=== PATIENT | female | born 1990 ===

== ENCOUNTER 2017-12-03 08:18 | Outpatient (CLI) | payer MEDICAID, SELFPAY ==
[2017-12-03 09:19] LABS: Abs Immature Grans 0.03 k/cumm (0.0-0.09); Absolute Basophil Count 0.03 k/cumm (0.0-0.2); Absolute Lymphocyte Count 3.23 k/cumm (1.2-3.4); Absolute Monocyte Count 0.71 k/cumm (0.11-0.7); Absolute Neutrophil Count 5.23 k/cumm (1.2-6.7); Basophils % 0.3; Eosinophils % 1.1; HCT 39.7 % (36.0-46.0); HGB 13.2 g/dL (12.0-15.5); Immature Grans % 0.3; Lymphocytes % 34.6; Mean Corp. HGB Concentration 33.2 g/dL (32.0-36.0); Mean Corpuscular Volume 96.4 fL (80-95); Mean Platelet Volume 10.2 fL (8.0-11.0); Monocytes % 7.6; Neutrophils % 56.1; Platelet Count 301 x1000/uL (130-400); RBC 4.12 m/cumm (4.00-5.20); White Blood Cell Count 9.33 k/cumm (4.4-10.8)
[2017-12-03 09:53] LABS: Anion Gap 12.3 mmol/L (3-11); BUN 8 mg/dL (7-18); CO2 24.7 mmol/L (21.0-32.0); CREATININE 0.62 mg/dL (0.55-1.02); Calcium 8.9 mg/dL (8.5-10.1); Chloride 103 mmol/L (98-107); Glucose 81 mg/dL (70-100); Magnesium 1.7 mg/dL (1.8-2.4); Potassium 3.9 mmol/L (3.5-5.1); Sodium 140 mmol/L (136-145); TSH (W/Ref FT4) 2.51 uIU/mL (0.358-3.74)
[2017-12-06 05:05] LABS: Vitamin D 25 Total 17.7 ng/ml (30-100)
== END 2017-12-03 08:19 ==
PROVIDERS: PCP Student in an Organized Health Care Education/Training Program; Visit Provider Student in an Organized Health Care Education/Training Program
DX: E46 Unspecified protein-calorie malnutrition (principal); R53.83 Other fatigue
CPT/HCPCS: 36415; 80048; 82306; 83735; 84443; 85025

== ENCOUNTER 2018-08-30 13:40 | Emergency (ER) | payer MEDICAID, SELFPAY ==
[2018-08-30 13:43] VITALS: BP 90/53; PULSE 70; RESP 16; TEMP 36.9; O2SAT 98
--- NOTE | 2018-08-30 16:20 | W.ED.GENAD ---
Discharge Plan Disposition Patient Disposition: HOME Discharge Details Chief Complaint: Orthopedic Primary Care Provider: Mirta Padilla ED Provider: Ronna Carson Home Meds and New Rx's Prescriptions: New cephalexin [Keflex] 500 mg capsule 500 mg PO QID Qty: 20 RF: 0 Continued sumatriptan succinate 50 mg tablet 50 mg PO ONCE Qty: 30 RF: 1 bupropion HCl [Wellbutrin XL] 300 mg tablet extended release 24 hr 300 mg PO QAM Qty: 90 RF: 3 multivitamin [Daily Multi-Vitamin] 1 EACH tablet 1 ea PO DAILY RF: 0 FE 1.5 (28) 1 EACH tablet 1 tab-cap PO DAILY 28 Days RF: 0 ibuprofen 200 MG capsule 200 mg PO PRN RF: 0 Discharge Data Discharge Date/Time-TO BE ENTERED AT DEPARTURE: 08/30/18 19:04 Medical Decision Making <Franky Jama NP - Last Filed: 09/06/18 08:07> Left hand fingernail avulsion and abrasions to the third fourth and fifth digits with complete nail loss to third digit and partial nail avulsion to fourth digit. Patient has sensation movement and cap refill all intact. Patient also does have a 5 mm laceration in between the DIP and PIP. Verbal consent was obtained for wound repair 6-0 Prolene 2 sutures were used to close laceration. Digital block technique with 3 mL's instilled to base of each finger. No matrix laceration was noted. ring finger nail was replaced and 2 sutures along with Dermabond was used to hold the nail in to the nailbed. Due to complete loss of the middle finger nail metallic suture packing was utilized to construct the nail and placed into the nailbed being held into place by Dermabond. Patient tolerated procedure well with no complication. imaging was ordered to rule out fracture. <ALYSIA Cervantes - Last Filed: 08/30/18 20:20> Care was transitioned to myself from Franky Jama NP with imaging pending of the patient's fourth digit left hand. Images are reviewed by radiology: FINDINGS: Bones/joints: There is a small bony density on the lateral adjacent to the distal tuft dorsally that may represent a tiny chip fracture. Soft tissues: There is soft tissue laceration with soft tissue swelling present about the distal finger. IMPRESSION: 1. Possible tiny chip fracture of the distal tuft. 2. Soft tissue laceration. Discussed these findings with the patient. She will prophylactically be placed on Keflex. I did advise follow-up with orthopedic follow-up for reevaluation, she will call them tomorrow to schedule follow-up appointment. Encourage rest, ice, elevation. Tylenol and ibuprofen as needed for discomfort. Foam and metal splint has been applied by nursing staff which she will keep on until evaluated by orthopedics. She was given strict return precautions, in particular signs of infection. Discussed wound care in depth. Advised to return in 12 to 14 days for suture removal. All of her questions and concerns were addressed and she is in agreement this plan. HPI <Franky Jama NP - Last Filed: 09/06/18 08:07> General Mode of arrival: ambulatory. Date/Time Provider Initiated Documentation: 08/30/18 14:24. Limitations to Documentation: no limitations. Information obtained by: patient and RN notes reviewed. History of Present Illness 28 year old F presents to the emergency department with the chief complaint of left hand injury, described as moderate, with intensity rated at 7. Quality is described as sharp, and is localized to the left and upper extremity. Patient started experiencing this hour(s) (1) and it has been constant. Patient notes no other symptoms.. Patient did receive the following treatments prior to arrival, none Related Data Home Medications Medication Instructions Recorded Confirmed (28) 1 tab-cap PO DAILY 28 Days tab-cap 11/24/17 08/30/18 ibuprofen 200 mg PO PRN 11/24/17 08/30/18 multivitamin [Daily Multi-Vitamin] 1 ea PO DAILY 11/24/17 08/30/18 bupropion HCl XL 300 mg 24 hr 300 mg PO QAM #90 tab 02/23/18 08/30/18 tablet, extended release sumatriptan 50 mg tablet 50 mg PO ONCE #30 tab 08/17/18 08/30/18 cephalexin [Keflex] 500 mg PO QID #20 cap 08/30/18 Previous Rx's Medication Instructions Recorded bupropion HCl XL 300 mg 24 hr 300 mg PO QAM #90 tab 02/23/18 tablet, extended release sumatriptan 50 mg tablet 50 mg PO ONCE #30 tab 08/17/18 cephalexin [Keflex] 500 mg PO QID #20 cap 08/30/18 Allergies Allergy/AdvReac Type Severity Reaction Status Date / Time adhesive Allergy Intermediate Rash Verified 08/30/18 13:46 General Stated Complaint: Orthopedic BEA: 4 Review of Systems <Franky Jama NP - Last Filed: 09/06/18 08:07> Cardiovascular Denies syncope and Denies lightheadedness Musculoskeletal Denies deformity, Denies limited range of motion and Denies numbness Integumentary/Breasts Reports as per HPI Neurologic Denies syncope, Denies numbness and Denies paresthesias PFSH <Franky Jama NP - Last Filed: 09/06/18 08:07> Surgical History No history of previous surgery (Acute) Family History Mother Alcohol abuse Depression Mental disorder Father Alcohol abuse Maternal Grandfather CAD (coronary artery disease) Maternal Grandmother CAD (coronary artery disease) Other Autism Social History Smoking/Tobacco Use Status: Never Alcohol Intake: never Drug use: Never Substance use type: does not use Adopted: No Caregiver/Support person: No Foster care: No Housing: apartment current occupation: student What type of physical activity do you participate in: none Seatbelt use: always Drive 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 Working smoke detector in home: Yes Fire extinguisher in home: No Carbon monox detector in home: Yes Firearms in home: No Do you feel safe at home: Yes Do you feel safe in your relationship?: Yes Exam <Franky Jama NP - Last Filed: 09/06/18 08:07> Const General: cooperative and no acute distress Orientation: alert, awake and oriented x3 Limitations: mental status not altered Resp Effort & Inspection: normal respiratory effort and able to speak in complete sentences Cardio Rate: regular rate Rhythm: regular rhythm Neuro General: alert, awake, oriented x3, gait normal, tone normal, moves all extremities, normal light touch, pain and propioception and no focal motor deficits Motor: no movement abnormalities noted Sensory Exam: no sensory deficits noted Extrem Left upper extremity: hand Details: normal capillary refill, neuromotor exam normal, neurosensory exam normal, tendon exam normal, abrasion Location: of the 3rd digit and of the 4th digit and laceration (nail avulsion of 3rd and 4th digit ) Course <Franky Jama NP - Last Filed: 09/06/18 08:07> Vital Signs Temperature 36.9 C 08/30/18 13:43 Pulse 70 08/30/18 13:43 Respiratory Rate 16 08/30/18 13:43 Blood Pressure 90/53 L 08/30/18 13:43 Pulse Oximetry 98 08/30/18 13:43 Temperature 36.9 C 08/30/18 13:43 Temperature Source Temporal Artery Scan 08/30/18 13:43 Pulse 70 08/30/18 13:43 Respiratory Rate 16 08/30/18 13:43 Respiratory Effort Non-Labored 08/30/18 13:45 Blood Pressure 90/53 L 08/30/18 13:43 Blood Pressure Position Sitting 08/30/18 13:43 Pulse Oximetry 98 08/30/18 13:43 Oxygen Delivery Method Room Air 08/30/18 13:43 Oxygen Flow Rate 0 08/30/18 13:43 Pain Level 7 08/30/18 13:43 Sign Out <Franky Jama NP - Last Filed: 09/06/18 08:07> Sign Out Data: Sign Out Comment: Pending radiological imaging of the left ring finger patient signed out to ALYSIA Shankar for review of images and discharge. Last updated by Franky Jama NP at 08/30/18 16:40
[2018-08-30] MEDS: Lidocaine 2% Multi-Dose 20 ML VIAL IJ (16:40)
--- NOTE | 2018-08-30 16:41 | DI.RAD_ITS ---
SYMPTOM/DIAGNOSIS: FELL, INJURY, PAIN, ? FX LEFT RING FINGER: Three views. On the lateral view, there is a tiny density seen at the dorsal aspect of the terminal tuft of the left ring finger which may represent a small acute chip fracture.
--- NOTE | 2018-08-30 17:20 | DI.VRAD_ITS ---
EXAM: XR Left Finger(s), 2 or More Views EXAM DATE/TIME: 08/30/2018 4:42 PM CLINICAL HISTORY: 28 years old, female; Injury or trauma; Injury history: Cart fell onto hand, missing fingernail; Initial encounter; Crushing; Left; Injury details: Injury to distal ring finger TECHNIQUE: Imaging protocol: XR Left fingers. Views: Minimum 2 views. COMPARISON: No relevant prior studies available. FINDINGS: Bones/joints: There is a small bony density on the lateral adjacent to the distal tuft dorsally that may represent a tiny chip fracture. Soft tissues: There is soft tissue laceration with soft tissue swelling present about the distal finger. IMPRESSION: 1. Possible tiny chip fracture of the distal tuft. 2. Soft tissue laceration. Dictated and Authenticated by: Andrea Montes MD. Ordering:BRAD Wilkins MD
[2018-08-30] MEDS: Acetaminophen 500 MG TAB 1000 MG PO (18:30)
[2018-08-30] MEDS: Ibuprofen 600 MG TAB PO (18:30)
== END 2018-08-30 19:04 | disposition home or self-care (01) ==
PROVIDERS: Emergency Provider Physician Assistant; PCP Student in an Organized Health Care Education/Training Program
DX: S62.635A Displaced fracture of distal phalanx of left ring finger, initial encounter for closed fracture (principal); S61.315A Laceration without foreign body of left ring finger with damage to nail, initial encounter; S61.313A Laceration without foreign body of left middle finger with damage to nail, initial encounter; S60.417A Abrasion of left little finger, initial encounter; W01.0XXA Fall on same level from slipping, tripping and stumbling without subsequent striking against object, initial encounter
CPT/HCPCS: 12001; 26750; 90471; 73140; J3490

== ENCOUNTER 2018-09-12 19:48 | Emergency (ER) | payer MEDICAID, SELFPAY ==
[2018-09-12 20:17] VITALS: BP 131/87; PULSE 101; RESP 18; TEMP 36.7; O2SAT 100
--- NOTE | 2018-09-12 21:15 | W.ED.GENAD ---
Discharge Plan Disposition Patient Disposition: HOME Discharge Details Chief Complaint: SutureRem Clinical Impression: Encounter for removal of sutures Primary Care Provider: Mirta Padilla ED Provider: Carmine Bains Home Meds and New Rx's Prescriptions: Continued sumatriptan succinate 50 mg tablet 50 mg PO ONCE Qty: 30 RF: 1 bupropion HCl [Wellbutrin XL] 300 mg tablet extended release 24 hr 300 mg PO QAM Qty: 90 RF: 3 multivitamin [Daily Multi-Vitamin] 1 EACH tablet 1 ea PO DAILY RF: 0 (28) 1 EACH tablet 1 tab-cap PO DAILY 28 Days RF: 0 ibuprofen 200 MG capsule 200 mg PO PRN RF: 0 Discharge Instructions Additional Instructions: Please follow-up with your primary care physician. Please follow-up with a hand specialist or return to the emergency department in 4-5 days for splint removal if metallic splint does not begin to grow out with nail growth. Return to the ER immediately for any worsening or new concerning symptoms per Referrals: Mirta Padilla DO [Primary Care Provider] - Medical Decision Making 28yo f here for suture removal left 4th digit. Left 4th digit #5 sutures removed without complication. Advised return or follow-up with hand specialist as needed if splint does not grow out in 5 days. HPI General Mode of arrival: ambulatory. Date/Time Provider Initiated Documentation: 09/12/18 20:32. Limitations to Documentation: no limitations. Information obtained by: patient. HPI Narrative: 28-year-old female 13 days after being seen for crush injury to her distal left third and fourth digits with nailbed injury requiring suture and splinting. Patient is followed up with orthopedics and splint was removed. She was advised to return to the ED for suture removal. Patient notes wound seem to be healing well with no signs of infection. Related Data Home Medications Medication Instructions Recorded Confirmed (28) 1 tab-cap PO DAILY 28 Days tab-cap 11/24/17 09/12/18 ibuprofen 200 mg PO PRN 11/24/17 09/12/18 multivitamin [Daily Multi-Vitamin] 1 ea PO DAILY 11/24/17 09/12/18 bupropion HCl XL 300 mg 24 hr 300 mg PO QAM #90 tab 02/23/18 09/12/18 tablet, extended release sumatriptan 50 mg tablet 50 mg PO ONCE #30 tab 08/17/18 09/12/18 Previous Rx's Medication Instructions Recorded bupropion HCl XL 300 mg 24 hr 300 mg PO QAM #90 tab 02/23/18 tablet, extended release sumatriptan 50 mg tablet 50 mg PO ONCE #30 tab 08/17/18 Allergies Allergy/AdvReac Type Severity Reaction Status Date / Time adhesive Allergy Intermediate Rash Verified 09/12/18 20:20 General Stated Complaint: SutureRem BEA: 5 Review of Systems Integumentary/Breasts Reports as per HPI [facility] Surgical History No history of previous surgery (Acute) Family History Mother Alcohol abuse Depression Mental disorder Father Alcohol abuse Maternal Grandfather CAD (coronary artery disease) Maternal Grandmother CAD (coronary artery disease) Other Autism Social History Smoking/Tobacco Use Status: Never Alcohol Intake: never Drug use: Never Substance use type: does not use Adopted: No Caregiver/Support person: No Foster care: No Housing: apartment current occupation: student What type of physical activity do you participate in: none Seatbelt use: always Drive intox or ride w/intox 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 Working smoke detector in home: Yes Fire extinguisher in home: No Carbon monox detector in home: Yes Firearms in home: No Do you feel safe at home: Yes Do you feel safe in your relationship?: Yes Exam Skin General skin exam: no erythema Wounds: wounds noted (left 4th digit with 5 intact sutures and no signs of infection) Nails: other (left 3rd digit with metal nail bed splint intact) Course Vital Signs Temperature 36.7 C 09/12/18 20:17 Pulse 101 H 09/12/18 20:17 Respiratory Rate 18 09/12/18 20:17 Blood Pressure 131/87 09/12/18 20:17 Pulse Oximetry 100 09/12/18 20:17 Temperature 36.7 C 09/12/18 20:17 Temperature Source Skin 09/12/18 20:17 Pulse 101 H 09/12/18 20:17 Respiratory Rate 18 09/12/18 20:17 Blood Pressure 131/87 09/12/18 20:17 Blood Pressure Position Sitting 09/12/18 20:17 Pulse Oximetry 100 09/12/18 20:17 Oxygen Delivery Method Room Air 09/12/18 20:17 Oxygen Flow Rate 0 09/12/18 20:17
--- NOTE | 2018-09-12 21:18 | ED.GENADUL_ITS ---
Discharge Plan Disposition Patient Disposition: HOME Discharge Details Chief Complaint: SutureRem Clinical Impression: Encounter for removal of sutures Primary Care Provider: Mirta Padilla ED Provider: Carmine Bains Home Meds and New Rx's Prescriptions: Continued sumatriptan succinate 50 mg tablet 50 mg PO ONCE Qty: 30 RF: 1 bupropion HCl [Wellbutrin XL] 300 mg tablet extended release 24 hr 300 mg PO QAM Qty: 90 RF: 3 multivitamin [Daily Multi-Vitamin] 1 EACH tablet 1 ea PO DAILY RF: 0 (28) 1 EACH tablet 1 tab-cap PO DAILY 28 Days RF: 0 ibuprofen 200 MG capsule 200 mg PO PRN RF: 0 Discharge Instructions Additional Instructions: Please follow-up with your primary care physician. Please follow-up with a hand specialist or return to the emergency department in 4-5 days for splint removal if metallic splint does not begin to grow out with nail growth. Return to the ER immediately for any worsening or new concerning symptoms per Referrals: Mirta Padilla DO [Primary Care Provider] - Medical Decision Making 28yo f here for suture removal left 4th digit. Left 4th digit #5 sutures removed without complication. Advised return or follow-up with hand specialist as needed if splint does not grow out in 5 days. HPI General Mode of arrival: ambulatory . Date/Time Provider Initiated Documentation: 09/12/18 20:32 . Limitations to Documentation: no limitations . Information obtained by: patient . HPI Narrative: 28-year-old female 13 days after being seen for crush injury to her distal left third and fourth digits with nailbed injury requiring suture and splinting. Patient is followed up with orthopedics and splint was removed. She was advised to return to the ED for suture removal. Patient notes wound seem to be healing well with no signs of infection. Related Data Home Medications Medication Instructions Recorded Confirmed (28) 1 tab-cap PO DAILY 28 Days tab-cap 11/24/17 09/12/18 ibuprofen 200 mg PO PRN 11/24/17 09/12/18 multivitamin [Daily Multi-Vitamin] 1 ea PO DAILY 11/24/17 09/12/18 bupropion HCl XL 300 mg 24 hr 300 mg PO QAM #90 tab 02/23/18 09/12/18 tablet, extended release sumatriptan 50 mg tablet 50 mg PO ONCE #30 tab 08/17/18 09/12/18 Previous Rx's Medication Instructions Recorded bupropion HCl XL 300 mg 24 hr 300 mg PO QAM #90 tab 02/23/18 tablet, extended release sumatriptan 50 mg tablet 50 mg PO ONCE #30 tab 08/17/18 Allergies Allergy/AdvReac Type Severity Reaction Status Date / Time adhesive Allergy Intermediate Rash Verified 09/12/18 20:20 General Stated Complaint: SutureRem BEA: 5 Review of Systems Integumentary/Breasts Reports as per HPI [facility] Surgical History No history of previous surgery (Acute) Family History Mother Alcohol abuse Depression Mental disorder Father Alcohol abuse Maternal Grandfather CAD (coronary artery disease) Maternal Grandmother CAD (coronary artery disease) Other Autism Social History Smoking/Tobacco Use Status: Never Alcohol Intake: never Drug use: Never Substance use type: does not use Adopted: No Caregiver/Support person: No Foster care: No Housing: apartment current occupation: student What type of physical activity do you participate in: none Seatbelt use: always Drive 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 Working smoke detector in home: Yes Fire extinguisher in home: No Carbon monox detector in home: Yes Firearms in home: No Do you feel safe at home: Yes Do you feel safe in your relationship?: Yes Exam Skin General skin exam: no erythema Wounds: wounds noted (left 4th digit with 5 intact sutures and no signs of infection) Nails: other (left 3rd digit with metal nail bed splint intact) Course Vital Signs Temperature 36.7 C 09/12/18 20:17 Pulse 101 H 09/12/18 20:17 Respiratory Rate 18 09/12/18 20:17 Blood Pressure 131/87 09/12/18 20:17 Pulse Oximetry 100 09/12/18 20:17 Temperature 36.7 C 09/12/18 20:17 Temperature Source Skin 09/12/18 20:17 Pulse 101 H 09/12/18 20:17 Respiratory Rate 18 09/12/18 20:17 Blood Pressure 131/87 09/12/18 20:17 Blood Pressure Position Sitting 09/12/18 20:17 Pulse Oximetry 100 09/12/18 20:17 Oxygen Delivery Method Room Air 09/12/18 20:17 Oxygen Flow Rate 0 09/12/18 20:17
== END 2018-09-12 21:40 | disposition home or self-care (01) ==
PROVIDERS: Emergency Provider Student in an Organized Health Care Education/Training Program; PCP Student in an Organized Health Care Education/Training Program
DX: S61.315D Laceration without foreign body of left ring finger with damage to nail, subsequent encounter (principal); W01.0XXD Fall on same level from slipping, tripping and stumbling without subsequent striking against object, subsequent encounter; Z48.02 Encounter for removal of sutures

== ENCOUNTER 2018-09-26 18:33 | Emergency (ER) | payer MEDICAID, SELFPAY ==
[2018-09-26 18:38] VITALS: BP 134/93; PULSE 94; RESP 14; TEMP 36.9; O2SAT 100
--- NOTE | 2018-09-26 19:12 | W.ED.GENAD ---
Discharge Plan Disposition Patient Disposition: HOME Condition: Improving Discharge Details Chief Complaint: Orthopedic Clinical Impression: Visit for wound check Primary Care Provider: Mirta Padilla ED Provider: Soren Christine Home Meds and New Rx's Prescriptions: Continued sumatriptan succinate 50 mg tablet 50 mg PO ONCE Qty: 30 RF: 1 bupropion HCl [Wellbutrin XL] 300 mg tablet extended release 24 hr 300 mg PO QAM Qty: 90 RF: 3 multivitamin [Daily Multi-Vitamin] 1 EACH tablet 1 ea PO DAILY RF: 0 (28) 1 EACH tablet 1 tab-cap PO DAILY 28 Days RF: 0 ibuprofen 200 MG capsule 200 mg PO PRN RF: 0 Discharge Instructions Additional Instructions: May gently massage with mineral oil 5-6 times daily. May soak in warm salt water to promote wound healing. Return if you develop a fever, redness, swelling. Dr. Bains did discuss your case with Dr. Cabrera who recommends letting the nailbed grow out on its own. Medical Decision Making 28-year-old female presents from home complaining of need for left ring finger and nailbed removal of foil from recent repair. The foil had been Dermabond to the nailbed. Dr. Bains had previously seen the patient and in the interim discussed with Dr. Cabrera who recommended no force removal. I discussed with patient; she may use mineral oil massage to break down the Dermabond. She will return for any signs of infection. We will not actively attempt to remove the glued piece of foil. HPI General Mode of arrival: ambulatory. Date/Time Provider Initiated Documentation: 09/26/18 18:38. Limitations to Documentation: no limitations. Information obtained by: patient. History of Present Illness 28 year old F presents to the emergency department with the chief complaint of Wound check right hand, no complaints, was told to return, Related Data Home Medications Medication Instructions Recorded Confirmed (28) 1 tab-cap PO DAILY 28 Days tab-cap 11/24/17 09/26/18 ibuprofen 200 mg PO PRN 11/24/17 09/26/18 multivitamin [Daily Multi-Vitamin] 1 ea PO DAILY 11/24/17 09/26/18 bupropion HCl XL 300 mg 24 hr 300 mg PO QAM #90 tab 02/23/18 09/26/18 tablet, extended release sumatriptan 50 mg tablet 50 mg PO ONCE #30 tab 08/17/18 09/26/18 Previous Rx's Medication Instructions Recorded bupropion HCl XL 300 mg 24 hr 300 mg PO QAM #90 tab 02/23/18 tablet, extended release sumatriptan 50 mg tablet 50 mg PO ONCE #30 tab 08/17/18 Allergies Allergy/AdvReac Type Severity Reaction Status Date / Time adhesive Allergy Intermediate Rash Verified 09/26/18 18:43 General Stated Complaint: Orthopedic BEA: 4 Review of Systems Review of Systems Return for fever, redness, discharge from the wound or any other concern [facility] Surgical History No history of previous surgery (Acute) Family History Mother Alcohol abuse Depression Mental disorder Father Alcohol abuse Maternal Grandfather CAD (coronary artery disease) Maternal Grandmother CAD (coronary artery disease) Other Autism Social History Smoking/Tobacco Use Status: Never Alcohol Intake: never Drug use: Never Substance use type: does not use Adopted: No Caregiver/Support person: No Foster care: No Housing: apartment current occupation: student What type of physical activity do you participate in: none Seatbelt use: always Drive intox 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 Pleasant, well groomed, interactive. HEAD: Normocephalic, atraumatic EXT: Full ROM, no edema, no rash. Healing abrasions and lacerations to the right hand. There is nailbed repair in place left ring finger Neuro: Grossly normal neurologic exam, conversant, interactive. Psych: Speech fluent, thoughts congruent, affect normal Course Vital Signs Temperature 36.9 C 09/26/18 18:38 Pulse 94 H 09/26/18 18:38 Respiratory Rate 14 09/26/18 18:38 Blood Pressure 134/93 H 09/26/18 18:38 Pulse Oximetry 100 06/03/19 18:38 Temperature 36.9 C 09/26/18 18:38 Temperature Source Skin 09/26/18 18:38 Pulse 94 H 09/26/18 18:38 Respiratory Rate 14 09/26/18 18:38 Respiratory Effort 09/26/18 18:46 Blood Pressure 134/93 H 09/26/18 18:38 Blood Pressure Position Sitting 09/26/18 18:38 Pulse Oximetry 100 09/26/18 18:38 Oxygen Delivery Method Room Air 09/26/18 18:38 Oxygen Flow Rate 0 09/26/18 18:38 Pain Level 2 09/26/18 18:38
--- NOTE | 2018-09-26 19:16 | ED.GENADUL_ITS ---
Discharge Plan Disposition Patient Disposition: HOME Condition: Improving Discharge Details Chief Complaint: Orthopedic Clinical Impression: Visit for wound check Primary Care Provider: Mirta Padilal ED Provider: Soren Christine Home Meds and New Rx's Prescriptions: Continued sumatriptan succinate 50 mg tablet 50 mg PO ONCE Qty: 30 RF: 1 bupropion HCl [Wellbutrin XL] 300 mg tablet extended release 24 hr 300 mg PO QAM Qty: 90 RF: 3 multivitamin [Daily Multi-Vitamin] 1 EACH tablet 1 ea PO DAILY RF: 0 (28) 1 EACH tablet 1 tab-cap PO DAILY 28 Days RF: 0 ibuprofen 200 MG capsule 200 mg PO PRN RF: 0 Discharge Instructions Additional Instructions: May gently massage with mineral oil 5-6 times daily. May soak in warm salt water to promote wound healing. Return if you develop a fever, redness, swelling. Dr. Bains did discuss your case with Dr. Cabrera who recommends letting the nailbed grow out on its own. Medical Decision Making 28-year-old female presents from home complaining of need for left ring finger and nailbed removal of foil from recent repair. The foil had been Dermabond to the nailbed. Dr. Bains had previously seen the patient and in the interim discussed with Dr. Cabrear who recommended no force removal. I discussed with patient; she may use mineral oil massage to break down the Dermabond. She will return for any signs of infection. We will not actively attempt to remove the glued piece of foil. HPI General Mode of arrival: ambulatory . Date/Time Provider Initiated Documentation: 09/26/18 18:38 . Limitations to Documentation: no limitations . Information obtained by: patient . History of Present Illness 28 year old F presents to the emergency department with the chief complaint of Wound check right hand, no complaints, was told to return, Related Data Home Medications Medication Instructions Recorded Confirmed (28) 1 tab-cap PO DAILY 28 Days tab-cap 11/24/17 09/26/18 ibuprofen 200 mg PO PRN 11/24/17 09/26/18 multivitamin [Daily Multi-Vitamin] 1 ea PO DAILY 11/24/17 09/26/18 bupropion HCl XL 300 mg 24 hr 300 mg PO QAM #90 tab 02/23/18 09/26/18 tablet, extended release sumatriptan 50 mg tablet 50 mg PO ONCE #30 tab 08/17/18 09/26/18 Previous Rx's Medication Instructions Recorded bupropion HCl XL 300 mg 24 hr 300 mg PO QAM #90 tab 02/23/18 tablet, extended release sumatriptan 50 mg tablet 50 mg PO ONCE #30 tab 08/17/18 Allergies Allergy/AdvReac Type Severity Reaction Status Date / Time adhesive Allergy Intermediate Rash Verified 09/26/18 18:43 General Stated Complaint: Orthopedic BEA: 4 Review of Systems Review of Systems Return for fever, redness, discharge from the wound or any other concern [facility] Surgical History No history of previous surgery (Acute) Family History Mother Alcohol abuse Depression Mental disorder Father Alcohol abuse Maternal Grandfather CAD (coronary artery disease) Maternal Grandmother CAD (coronary artery disease) Other Autism Social History Smoking/Tobacco Use Status: Never Alcohol Intake: never Drug use: Never Substance use type: does not use Adopted: No Caregiver/Support person: No Foster care: No Housing: apartment current occupation: student What type of physical activity do you participate in: none Seatbelt use: always Drive intox or ride w/intox truck driver's offsider: No Working smoke detector in home: Yes Fire extinguisher in home: No Carbon monox detector in home: Yes Firearms in home: No Do you feel safe at home: Yes Do you feel safe in your relationship?: Yes Exam Narrative Exam Narrative: GEN: awake, alert, oriented 3. Pleasant, well groomed, interactive. HEAD: Normocephalic, atraumatic EXT: Full ROM, no edema, no rash. Healing abrasions and lacerations to the right hand. There is nailbed repair in place left ring finger Neuro: Grossly normal neurologic exam, conversant, interactive. Psych: Speech fluent, thoughts congruent, affect normal Course Vital Signs Temperature 36.9 C 09/26/18 18:38 Pulse 94 H 09/26/18 18:38 Respiratory Rate 14 09/26/18 18:38 Blood Pressure 134/93 H 09/26/18 18:38 Pulse Oximetry 100 06/03/19 18:38 Temperature 36.9 C 09/26/18 18:38 Temperature Source Skin 09/26/18 18:38 Pulse 94 H 09/26/18 18:38 Respiratory Rate 14 09/26/18 18:38 Respiratory Effort 09/26/18 18:46 Blood Pressure 134/93 H 09/26/18 18:38 Blood Pressure Position Sitting 09/26/18 18:38 Pulse Oximetry 100 09/26/18 18:38 Oxygen Delivery Method Room Air 09/26/18 18:38 Oxygen Flow Rate 0 09/26/18 18:38 Pain Level 2 09/26/18 18:38
== END 2018-09-26 20:39 | disposition home or self-care (01) ==
PROVIDERS: Emergency Provider Emergency Medicine; PCP Student in an Organized Health Care Education/Training Program
DX: S61.315D Laceration without foreign body of left ring finger with damage to nail, subsequent encounter (principal); W01.0XXD Fall on same level from slipping, tripping and stumbling without subsequent striking against object, subsequent encounter

== ENCOUNTER 2019-04-23 09:25 | Outpatient (CLI) | payer MEDICAID, SELFPAY ==
[2019-04-23 09:42] LABS: HCT 43.8 % (36.0-46.0); HGB 14.4 g/dL (12.0-15.5); Mean Corp. HGB Concentration 32.9 g/dL (32.0-36.0); Mean Corpuscular Hemoglobin 31.6 pg (27.0-33.0); Mean Corpuscular Volume 96.1 fL (80-95); Mean Platelet Volume 9.4 fL (8.0-11.0); Platelet Count 332 x1000/uL (130-400); RBC 4.56 m/cumm (4.00-5.20); RBC Distribution Width 12.4 % (11.7-14.6); White Blood Cell Count 7.38 k/cumm (4.4-10.8)
[2019-04-23 10:40] LABS: ALT 29 U/L (14-59); AST 19 U/L (15-37); Albumin 4.3 g/dL (3.4-5.0); Alkaline Phosphatase 76 U/L (46-116); Anion Gap 13.2 mmol/L (3-11); BUN 12 mg/dL (7-18); Bilirubin, Total 1.4 mg/dL (0.2-1.0); CO2 26.8 mmol/L (21.0-32.0); CREATININE 0.83 mg/dL (0.55-1.02); Calcium 9.4 mg/dL (8.5-10.1); Calculated LDL 76 mg/dL; Chloride 101 mmol/L (98-107); Cholesterol 149 mg/dL (<200); Glucose 84 mg/dL (74-106); HDL Cholesterol 59 mg/dL (40-60); Magnesium 1.8 mg/dL (1.8-2.4); Potassium 4.3 mmol/L (3.5-5.1); Sodium 141 mmol/L (136-145); TSH (W/Ref FT4) 0.61 uIU/mL (0.36-3.74); Total Protein 8.2 g/dL (6.4-8.2); Triglyceride 70 mg/dL (<150)
== END 2019-04-23 09:45 ==
PROVIDERS: PCP Student in an Organized Health Care Education/Training Program; Visit Provider Student in an Organized Health Care Education/Training Program
DX: R53.83 Other fatigue; F41.1 Generalized anxiety disorder; R51 Headache; F32.9 Major depressive disorder, single episode, unspecified; R68.89 Other general symptoms and signs; Z13.220 Encounter for screening for lipoid disorders; Z13.1 Encounter for screening for diabetes mellitus; Z82.49 Family history of ischemic heart disease and other diseases of the circulatory system; Z86.2 Personal history of diseases of the blood and blood-forming organs and certain disorders involving the immune mechanism
CPT/HCPCS: 36415; 80053; 80061; 85027; 83735; 84443

== ENCOUNTER 2020-07-30 02:47 | Outpatient (CLI) | payer MEDICAID, SELFPAY ==
[2020-07-31 18:34] LABS: COVID-19 RT-PCR UVMMC Result Negative (Negative)
== END 2020-07-30 02:48 | disposition home or self-care (01) ==
PROVIDERS: PCP Student in an Organized Health Care Education/Training Program; Visit Provider Student in an Organized Health Care Education/Training Program
DX: Z20.822 Contact with and (suspected) exposure to COVID-19 (principal)
CPT/HCPCS: U0003

== ENCOUNTER 2021-01-17 02:54 | Outpatient (CLI) | payer MEDICAID, SELFPAY ==
[2021-01-17 13:17] LABS: HCT 40.6 % (36.0-46.0); HGB 13.5 g/dL (11.2-15.7); MCH 31.9 pg (27.0-33.0); MCHC 33.3 % (32.0-36.0); MPV 9.2 fL (8.0-11.0); Platelet Count 349 10^3/uL (130-400); RBC 4.23 10^6/uL (3.93-5.22); RDW-SD 46.3 fL; WBC 7.65 10^3/uL (4.4-10.8)
[2021-01-17 14:40] LABS: ALT 33 U/L (14-59); AST 15 U/L (15-37); Alkaline Phosphatase 80 U/L (46-116); Anion Gap 12.4 mmol/L (3-11); BUN 9 mg/dL (7-18); Bilirubin, Total 0.7 mg/dL (0.2-1.0); CO2 24.6 mmol/L (21.0-32.0); CREATININE 0.7 mg/dL (0.55-1.02); Calcium 9.1 mg/dL (8.5-10.1); Calculated LDL 87 mg/dL (<100); Chloride 105 mmol/L (98-107); Cholesterol 150 mg/dL (<200); Folate > 20.0 ng/mL (8.6-20.0); Glucose 106 mg/dL (74-106); HDL Cholesterol 50 mg/dL (40-60); Potassium 4.3 mmol/L (3.5-5.1); Sodium 142 mmol/L (136-145); Total Protein 7.9 g/dL (6.4-8.2); Triglyceride 68 mg/dL (<150); Vitamin B12 232 pg/mL (193-986)
[2021-01-20 02:18] LABS: Vitamin D 25 Total 13.6 ng/mL (30-100)
== END 2021-01-17 02:55 | disposition home or self-care (01) ==
LOC: LBO 02:54
PROVIDERS: PCP Student in an Organized Health Care Education/Training Program; Visit Provider Student in an Organized Health Care Education/Training Program
DX: M25.59 Pain in other specified joint; K90.89 Other intestinal malabsorption; E63.8 Other specified nutritional deficiencies; R53.83 Other fatigue; Z13.220 Encounter for screening for lipoid disorders; E86.0 Dehydration; F32.9 Major depressive disorder, single episode, unspecified; M35.9 Systemic involvement of connective tissue, unspecified; D75.89 Other specified diseases of blood and blood-forming organs
CPT/HCPCS: 36415; 80053; 80061; 82306; 85027; 82607; 82746; 84443

== ENCOUNTER 2021-02-26 03:14 | Outpatient (CLI) | payer MEDICAID, SELFPAY ==
[2021-02-26 11:12] LABS: Source Nasal/Nares
[2021-02-26 13:11] LABS: COVID-19 PCR Negative (Negative)
== END 2021-02-26 03:15 | disposition home or self-care (01) ==
LOC: LBO 03:14
PROVIDERS: PCP Student in an Organized Health Care Education/Training Program; Visit Provider Surgery
DX: Z20.822 Contact with and (suspected) exposure to COVID-19 (principal); Z01.818 Encounter for other preprocedural examination
CPT/HCPCS: 87635

== ENCOUNTER 2021-05-23 01:57 | Outpatient (CLI) | payer BC, SELFPAY ==
--- NOTE | 2021-05-23 12:30 | DI.US_ITS ---
APPROVED REPORT EXAM: Comprehensive 2D, Doppler, and color-flow Echocardiogram Patient Location: Out-Patient Manager Clinical Applications: Laina Jaramillo RDCS (AE) Indications: Tachycardia, Fatigue Other Information Study Quality: Good Conclusion Normal left ventricular wall thickness and chamber size. Estimated ejection fraction of 60 to 65%. Wall motion is normal Normal right ventricular size and systolic function Both atria are normal in size There is no structural or hemodynamically significant valvular disease Wall motion Left Ventricle The left ventricle is normal size. The left ventricular systolic function is normal. The left ventric ular ejection fraction is within the normal range. There is normal left ventricular wall thickness. T here is normal LV segmental wall motion. There is no ventricular septal defect visualized. LVEF is 60 -65%. Right Ventricle The right ventricle is normal size. The right ventricular systolic function is normal. Atria The left atrium size is normal. The right atrium size is normal. The interatrial septum is intact wit h no evidence for an atrial septal defect. Aortic Valve The aortic valve is normal in structure. Aortic valve is trileaflet. There is no aortic valvular sten osis. No aortic regurgitation is present. Mitral Valve The mitral valve is normal in structure. No evidence of mitral valve stenosis. Trace mitral regurgita tion. Tricuspid Valve The tricuspid valve is normal in structure. There is no tricuspid valve stenosis. Trace tricuspid reg urgitation. Unable to assess PA pressure. Pulmonic Valve The pulmonary valve is normal in structure. There is no pulmonic valvular stenosis. There is no pulmo josé valvular regurgitation. Great Vessels The aortic root is normal in size. The ascending aorta is normal in size. Aortic arch is normal in ca liber. IVC is normal in size and collapses >50% with inspiration. Pericardium There is no pericardial effusion. 2D Dimensions IVSD d PLAX 0.72 cm F: 0.6-1.0 LV Vol A2C d MOD 82.6 mL LVPW d PLAX 0.73 cm F: 0.6 - 1.0 LV Vol A4C d MOD 78.4 mL LVID d PLAX 4.19 cm F: 3.8 - 5.2 LA vol/ BSA A2C s A-L 12.3 mL/m2 LVDs 2.70 cm F: 2.2 - 3.5 LA vol/ BSA A4C s A-L 15.6 mL/m2 Ao Root d 2.53 cm F: 2.7 - 3.3 LA Vol/ BSA Biplane s A-L 14.3 mL/m2 RA Area A4C 8.07 cm2 LA Area A4C s MOD 11.35 cm2 RA Vol/ BSA A4C s A-L 9.7 mL/m2 LA Area A2C s MOD 9.78 cm2 Ao Asc Diam d 2.71 cm F: 2.3 - 3.1 LV EF A4C MOD 59.0 % LV EF Teichholz 64.9 % LV EF A2C MOD 59.0 % LVEF ([facility]) 57.73 % F: 54 - 74 LV EF Biplane MOD 57.7 % LV Volume 67.44 mL F: 46 - 106 SV 48.13 mL LV Volume Index 41.88 mL/m2 F: 29 - 61 SV Index 29.74 mL/m2 LV Vol Biplane MOD 83.4 mL FS 35.10 % M-Mode TAPSE 2.37 cm (M/F) >1.7 LV Diastology MV E' medial 0.125 (>0.07 m/s) E/A Ratio 1.1 LV E/e MED 7.70 (<14) MV E Vmax 0.96 (0.4-1.3 m/s) MV E' lateral 0.188 (>0.1 m/s) MV A Vmax 0.85 (0.4-1.3 m/s) LV E/e LAT 5.10 (<14) MV E/A Ratio 1.09 MV E/E' medial 7.74 MV E/E' lateral 5.13 Aortic Valve LVOT Area 2.88 cm2 AoV Area Vmax 2.78 cm2 LVOT Vmax 1.22 m/s AoV Area/ BSA (Vmax) 1.72 cm2/m2 LVOT Mean Kumar. 0.82 m/s RAGINI Mean Kumar. 2.70 cm2 LVOT Peak Grad 5.9 mmHg RAGINI Mean Kumar. Index 1.67 cm2/m2 LVOT Mean Grad 3.1 mmHg LVOT VTI 0.204 m LVOT Diam s 1.90 cm AoV Vmax 1.26 m/s Velocity Ratio 0.96 AoV Mean Kumar. 0.88 m/s AoV Peak Grad 6.4 mmHg LVOT SV 58.97 mL AoV Mean Grad 3.5 mmHg AoV VTI 0.236 m AoV Area VTI 2.49 cm2 AoV Area/ BSA (VTI) 1.54 cm/m2 Mitral Valve MV DT 210 (160-240 msec) MV PHT 61 msec MV Area PHT 3.61 cm2 MV VTI 0.348 m MV Area VTI 1.70 (4.0-6.0 cm2) Pulmonary Valve PV Vmax 1.22 (0.5-1.5 m/s) RVOT Peak Gr. 4.33 mmHg PV Peak Grad 6.0 mmHg RVOT Mean Gr. 2.35 mmHg PV Mean Grad 3.6 mmHg RVOT VTI 0.169 m PV VTI 0.214 m RVOT Vmax 1.04 m/s
== END 2021-05-23 02:17 ==
PROVIDERS: PCP Student in an Organized Health Care Education/Training Program; Visit Provider Nurse Practitioner Acute Care
DX: R00.0 Tachycardia, unspecified (principal); R53.83 Other fatigue
CPT/HCPCS: 93306

== ENCOUNTER 2021-06-02 04:25 | Outpatient (RCR) | payer BC, SELFPAY ==
--- NOTE | 2021-06-02 07:45 | HOLTER_ITS ---
APPROVED REPORT Conclusion This is a Holter monitor ordered for tachycardia. Monitoring was for 1 day and 4 hours Predominant rhythm was sinus. Average heart rate was 80. Minimum was 64, maximum 161 There were very rare ventricular ectopic beats, 1 couplet There were no significant supraventricular dysrhythmias There was no atrial fibrillation, no high-grade AV block, no pauses greater than 3 seconds Multiple patient symptoms were reported, corresponding to sinus rhythm ranging from the mid 70s up to 113 bpm
== END 2021-06-23 23:59 | disposition home or self-care (01) ==
LOC: RT 04:25
PROVIDERS: PCP Student in an Organized Health Care Education/Training Program; Visit Provider Nurse Practitioner Acute Care
DX: R00.0 Tachycardia, unspecified (principal)
CPT/HCPCS: 93225; 93226

== ENCOUNTER 2021-06-25 15:27 | Outpatient (CLI) | payer BC, SELFPAY | END 2021-06-25 15:28 | disposition home or self-care (01) | LOC: RT 15:27 | PROVIDERS: PCP Student in an Organized Health Care Education/Training Program; Visit Provider Student in an Organized Health Care Education/Training Program | DX: R53.83 Other fatigue (principal); R51.9 Headache, unspecified; G47.8 Other sleep disorders | CPT/HCPCS: 94762 ==

== ENCOUNTER 2021-12-02 03:30 | Outpatient (CLI) | payer BC, SELFPAY ==
[2021-12-02 11:37] LABS: Abs Immature Grans 0.02 10^3/uL (0.0-0.06); Absolute Basophil Count 0.04 10^3/uL (0.0-0.2); Absolute Lymphocyte Count 4.67 10^3/uL (1.2-3.4); Absolute Monocyte Count 0.57 10^3/uL (0.1-0.8); Basophils % 0.5; Eosinophils % 1.2; HGB 14.1 g/dL (11.2-15.7); Immature Grans % 0.2; Lymphocytes % 56.3; MCH 31.9 pg (27.0-33.0); MCHC 33.6 % (32.0-36.0); MCV 95 fL (80-95); MPV 10.7 fL (8.0-11.0); Monocytes % 6.9; Neutrophils % 34.9; Platelet Count 253 10^3/uL (130-400); RBC 4.42 10^6/uL (3.93-5.22); RDW 13.1 % (11.7-14.6); RDW-SD 45.8 fL
[2021-12-02 11:58] LABS: Hemoglobin A1C 5.2 % (<5.7)
[2021-12-02 12:06] LABS: Iron 92 ug/dL (50-170); Total Iron Binding Capacity 426 ug/dL (250-450); Transferrin Sat 22 % (15-50)
[2021-12-02 12:30] LABS: ALT 24 U/L (14-59); AST 16 U/L (15-37); Albumin 3.9 g/dL (3.4-5.0); Alkaline Phosphatase 56 U/L (46-116); Anion Gap 11.7 mmol/L (3-11); BUN 8 mg/dL (7-18); CO2 24.3 mmol/L (21.0-32.0); CREATININE 0.7 mg/dL (0.55-1.02); Chloride 103 mmol/L (98-107); Folate 17.7 ng/mL (8.6-20.0); Glucose 83 mg/dL (74-106); Magnesium 1.7 mg/dL (1.8-2.4); Potassium 3.6 mmol/L (3.5-5.1); Sodium 139 mmol/L (136-145); TSH 3.45 uIU/mL (0.36-3.74); Total Protein 7.6 g/dL (6.4-8.2); Vitamin B12 246 pg/mL (193-986)
[2021-12-02 12:35] LABS: Calcium 8.8 mg/dL (8.5-10.1)
[2021-12-02 22:12] LABS: T3,Free 3.4 pg/mL (2.8-5.3)
[2021-12-02 23:29] LABS: Thyroperoxidase Antibody <28 U/mL (<=60)
[2021-12-03 10:20] LABS: Homocysteine 12.3 umol/L (5.0-13.9)
[2021-12-03 13:27] LABS: Lipoprotein (a) <7 nmol/L (<75)
[2021-12-03 18:26] LABS: Zinc, S 68 mcg/dL (60-106)
[2021-12-04 04:53] LABS: Vitamin D 25 Total 32.2 ng/mL (30-100)
[2021-12-04 13:46] LABS: EBV EA IgG Negative (Negative)
[2021-12-05 16:19] LABS: Candida albicans IgG 42.3 mcg/mL (<52.0)
== END 2021-12-02 03:31 | disposition home or self-care (01) ==
LOC: LBO 03:30
PROVIDERS: PCP Student in an Organized Health Care Education/Training Program; Visit Provider Naturopath
DX: E55.9 Vitamin D deficiency, unspecified (principal); R53.83 Other fatigue; K90.49 Malabsorption due to intolerance, not elsewhere classified; R51.9 Headache, unspecified; L60.3 Nail dystrophy; Z82.49 Family history of ischemic heart disease and other diseases of the circulatory system
CPT/HCPCS: 36415; 80053; 82306; 83090; 83695; 84630; 86001; 86663; 82607; 82746; 83036; 83540; 83550; 83735; 84443; 84481; 85025; 86376

== ENCOUNTER 2021-12-24 02:41 | Outpatient (CLI) | payer BC, SELFPAY ==
[2021-12-24 14:00] LABS: Kit/Specimen SENT
== END 2021-12-24 02:42 | disposition home or self-care (01) ==
LOC: LBO 02:41
PROVIDERS: PCP Student in an Organized Health Care Education/Training Program; Visit Provider Naturopath
DX: R69 Illness, unspecified (principal)
CPT/HCPCS: 36415

== ENCOUNTER 2022-04-16 02:16 | Outpatient (CLI) | payer BC, SELFPAY ==
[2022-04-16 13:44] LABS: Magnesium 1.9 mg/dL (1.8-2.4)
[2022-04-16 14:11] LABS: Vitamin D 25 Total 27.8 ng/mL (30-100)
[2022-04-23 12:25] LABS: IgA 116 mg/dL (85-499); Interpretation (See Note); Tissue Transglutaminase IgA <1.2 U/mL (<4.0)
== END 2022-04-16 02:17 | disposition home or self-care (01) ==
LOC: LBO 02:16
PROVIDERS: PCP Student in an Organized Health Care Education/Training Program; Visit Provider Student in an Organized Health Care Education/Training Program
DX: E55.9 Vitamin D deficiency, unspecified (principal); G89.29 Other chronic pain; K58.9 Irritable bowel syndrome, unspecified; K90.9 Intestinal malabsorption, unspecified; M25.59 Pain in other specified joint; R10.13 Epigastric pain; R11.0 Nausea; R14.0 Abdominal distension (gaseous); R53.82 Chronic fatigue, unspecified; E87.8 Other disorders of electrolyte and fluid balance, not elsewhere classified
CPT/HCPCS: 36415; 82306; 82784; 83516; 83735

== ENCOUNTER 2022-09-07 01:22 | Outpatient (CLI) | payer BC, SELFPAY ==
--- NOTE | 2022-09-07 08:15 | DI.RAD_ITS ---
Exam(s) XR CERVICAL SPINE COMP 4-5V EXAM: XR CERVICAL SPINE COMP 4-5V CLINICAL HISTORY: evaluate lordosis; spacing,? bony pathology,occipital neuralgia,eds,m54.2,. TECHNIQUE: 2D digital imaging was performed. COMPARISON: No exams were available for comparison FINDINGS: BONES: No fracture or destructive lesion. Vertebral bodies are unremarkable. No facet degenerative changes are seen. DISKS: Mild narrowing of the C4-5 disc space. Endplate osteophytes projecting anteriorly. Remaining intervertebral disc spaces are maintained. No significant neural foraminal narrowing. ALIGNMENT: Some straightening of the normal cervical lordosis. The odontoid and atlantoaxial articul ations are normal. SOFT TISSUE: Normal. The lung apices are clear. IMPRESSION: Mild degenerative disc changes at C4-5. DATA REPOSITORY: RADIATION DOSE DELIVERED:
== END 2022-09-07 01:42 ==
LOC: DI 01:22
PROVIDERS: PCP Student in an Organized Health Care Education/Training Program; Visit Provider Student in an Organized Health Care Education/Training Program
DX: M50.021 Cervical disc disorder at C4-C5 level with myelopathy
CPT/HCPCS: 72050

== ENCOUNTER 2022-09-29 03:19 | Outpatient (CLI) | payer BC, SELFPAY ==
[2022-10-01 15:01] LABS: ANA Interpretation Negative (Negative)
[2022-10-02 15:46] LABS: RNP Ab, IgG 3.1 Units (<20.0); SS-A Antibody 2.1 Units (<20.0); SS-B (La) Ab, IgG 1.4 Units (<20.0); Sm (Smith) Ab, IgG 4.5 Units (<20.0)
== END 2022-09-29 03:20 | disposition home or self-care (01) ==
LOC: LBO 03:19
PROVIDERS: PCP Student in an Organized Health Care Education/Training Program; Visit Provider Psychiatry & Neurology Neurology
DX: I73.00 Raynaud's syndrome without gangrene (principal)
CPT/HCPCS: 36415; 86038; 86235

== ENCOUNTER 2023-05-12 02:52 | Outpatient (CLI) | payer OTHER, SELFPAY ==
[2023-05-12 12:05] LABS: Anion Gap 8.8 mmol/L (3-11); BUN 11 mg/dL (7-18); CO2 26.2 mmol/L (21.0-32.0); CREATININE 0.9 mg/dL (0.55-1.02); Calcium 9.3 mg/dL (8.5-10.1); Chloride 104 mmol/L (98-107); Estimated GFR 86.57 (mL/min/1.73m2); Glucose 96 mg/dL (74-106); Magnesium 1.9 mg/dL (1.8-2.4); Potassium 3.7 mmol/L (3.5-5.1); Sodium 139 mmol/L (136-145)
[2023-05-12 12:34] LABS: Vitamin D 25 Total 25.6 ng/mL (30-100)
== END 2023-05-12 02:53 | disposition home or self-care (01) ==
LOC: LBO 02:52
PROVIDERS: PCP Student in an Organized Health Care Education/Training Program; Visit Provider Student in an Organized Health Care Education/Training Program
DX: E55.9 Vitamin D deficiency, unspecified (principal); E87.8 Other disorders of electrolyte and fluid balance, not elsewhere classified; G43.009 Migraine without aura, not intractable, without status migrainosus; G90.1 Familial dysautonomia [Riley-Day]; Z91.89 Other specified personal risk factors, not elsewhere classified
CPT/HCPCS: 36415; 80048; 82306; 83735

== ENCOUNTER 2023-12-03 01:07 | Outpatient (CLI) | payer OTHER, SELFPAY ==
[2023-12-03 15:01] LABS: HCT 43.6 % (36.0-46.0); HGB 14.5 g/dL (11.2-15.7); MCH 32.4 pg (27.0-33.0); MCHC 33.3 % (32.0-36.0); MCV 97 fL (80-95); MPV 9.3 fL (8.0-11.0); Platelet Count 367 10^3/uL (130-400); RBC 4.48 10^6/uL (3.93-5.22); RDW 12.6 % (11.7-14.6); RDW-SD 45.1 fL; WBC 7.97 10^3/uL (4.4-10.8)
[2023-12-03 15:44] LABS: ALT 17 U/L (14-59); AST 12 U/L (15-37); Albumin 3.9 g/dL (3.4-5.0); Alkaline Phosphatase 67 U/L (46-116); Anion Gap 10.4 mmol/L (3-11); BUN 8 mg/dL (7-18); Bilirubin, Total 1.27 mg/dL (0.2-1.0); CO2 23.6 mmol/L (21.0-32.0); CREATININE 0.8 mg/dL (0.55-1.02); Calcium 9.1 mg/dL (8.5-10.1); Calculated LDL 82 mg/dL (<100); Chloride 105 mmol/L (98-107); Cholesterol 160 mg/dL (<200); Estimated GFR 99.09 (mL/min/1.73m2); Glucose 129 mg/dL (74-106); HDL Cholesterol 53 mg/dL (40-60); Potassium 3.4 mmol/L (3.5-5.1); Sodium 139 mmol/L (136-145); TSH (W/Ref FT4) 1.07 uIU/mL (0.36-3.74); Total Protein 7.8 g/dL (6.4-8.2); Triglyceride 126 mg/dL (<150); Vitamin D 25 Total 25.6 ng/mL (30-100)
== END 2023-12-03 01:08 | disposition home or self-care (01) ==
LOC: LBO 01:08
PROVIDERS: PCP Student in an Organized Health Care Education/Training Program; Visit Provider Student in an Organized Health Care Education/Training Program
DX: K90.9 Intestinal malabsorption, unspecified (principal); Z13.1 Encounter for screening for diabetes mellitus; Z13.21 Encounter for screening for nutritional disorder; G93.32 Myalgic encephalomyelitis/chronic fatigue syndrome; Z86.2 Personal history of diseases of the blood and blood-forming organs and certain disorders involving the immune mechanism; G90.9 Disorder of the autonomic nervous system, unspecified; R79.89 Other specified abnormal findings of blood chemistry; Z13.220 Encounter for screening for lipoid disorders
CPT/HCPCS: 36415; 80053; 80061; 82306; 85027; 84443

== ENCOUNTER 2025-02-23 15:08 | Outpatient (REF) | payer OTHER, SELFPAY ==
[2025-02-23 21:47] LABS: Abs Immature Grans 0.01 10^3/uL (0.0-0.06); HCT 39.8 % (36.0-46.0); HGB 13.3 g/dL (11.2-15.7); Immature Grans % 0.1 %; MCH 31.4 pg (27.0-33.0); MCHC 33.4 % (32.0-36.0); MCV 94 fL (80-95); MPV 9.8 fL (8.0-11.0); Platelet Count 395 10^3/uL (130-400); RBC 4.24 10^6/uL (3.93-5.22); RDW 13.3 % (11.7-14.6); RDW-SD 46.1 fL; WBC 7.33 10^3/uL (4.4-10.8)
[2025-02-23 21:59] LABS: Hemoglobin A1C 5.1 % (<5.7)
[2025-02-23 22:28] LABS: ALT 19 U/L (14-59); AST 9 U/L (15-37); Albumin 3.9 g/dL (3.4-5.0); Alkaline Phosphatase 80 U/L (46-116); Anion Gap 10.5 mmol/L (3-11); BUN 9 mg/dL (7-18); Bilirubin, Total 0.9 mg/dL (0.2-1.0); CO2 25.5 mmol/L (21.0-32.0); Calcium 9.1 mg/dL (8.5-10.1); Chloride 103 mmol/L (98-107); Cholesterol 164 mg/dL (<200); Folate > 20.0 ng/mL (8.6-20.0); Glucose 89 mg/dL (74-106); HDL Cholesterol 47 mg/dL (>or=50); Potassium 4.1 mmol/L (3.5-5.1); Sodium 139 mmol/L (136-145); TSH (W/Ref FT4) 1.13 uIU/mL (0.36-3.74); Total Protein 7.6 g/dL (6.4-8.2); Vitamin B12 676 pg/mL (193-986); Vitamin D 25 Total 29 ng/mL (30-100)
[2025-02-26 09:40] LABS: Hepatitis C Ab w Rflx HCV PCR Negative (Negative)
[2025-02-26 10:00] LABS: HIV-1/2 Ag & Ab Screen Negative (Negative)
== END 2025-02-23 15:09 | disposition home or self-care (01) ==
LOC: NCHCN 15:08
PROVIDERS: Visit Provider Nurse Practitioner Family
DX: D75.89 Other specified diseases of blood and blood-forming organs (principal); Z11.59 Encounter for screening for other viral diseases; E55.9 Vitamin D deficiency, unspecified; G93.32 Myalgic encephalomyelitis/chronic fatigue syndrome; Z13.220 Encounter for screening for lipoid disorders; Z11.4 Encounter for screening for human immunodeficiency virus [HIV]
CPT/HCPCS: 80053; 80061; 82306; 86803; 87389; 82607; 82746; 83036; 84443; 85025